=== PATIENT | female | born 1950 | race Caucasian/White ===

== ENCOUNTER 2019-02-10 16:28 | Emergency (ER) | payer MEDICARE ==
--- NOTE | 2019-02-10 16:50 | UC ---
Respiratory Complaint HPI - History of Current Complaint Stated Complaint: COUGH/CONGESTION Time Seen by Provider: 02/10/19 16:42 Hx Obtained From: Patient Onset/Duration: Sudden Onset, Lasting Days - 5 Timing: Constant Severity Initially: Mild Severity Currently: Moderate Character: Cough: Nonproductive Aggravating Factors: Deep Breaths, Recumbent Position Alleviating Factors: Nothing Associated Signs And Symptoms: Positive: Dyspnea - Allergies/Home Medications Allergies/Adverse Reactions: Allergies Allergy/AdvReac Type Severity Reaction Status Date / Time No Known Allergies Allergy Verified 02/10/19 16:51 PMH/Surg Hx/FS Hx/Imm Hx Previously Healthy: Yes - Surgical History Surgical History: Yes Surgery Procedure, Year, and Place: appy, hysterectomy - Family History Known Family History: Positive: Hypertension - Social History Alcohol Use: None Substance Use Type: None Smoking Status (MU): Never Smoked Tobacco Review of Systems All Other Systems Reviewed And Are Negative: Yes Constitutional: Positive: Fatigue ENT: Positive: Sore Throat Respiratory: Positive: Cough Neurological: Positive: Headache Is Patient Immunocompromised?: No Physical Exam Triage Information Reviewed: Yes Appearance: Well-Nourished, Ill-Appearing, Pain Distress Vital Signs Reviewed: Yes Eye Exam: Normal ENT: Positive: Pharyngeal erythema, Nasal congestion, TM bulging Dental Exam: Normal Neck exam: Normal Respiratory: Positive: Chest non-tender, Normal breath sounds, Decreased breath sounds Cardiovascular Exam: Normal Cardiovascular: Positive: RRR, No Murmur, Pulses Normal Abdominal Exam: Normal Musculoskeletal Exam: Normal Neurological Exam: Normal Psychological Exam: Normal Skin Exam: Normal Respiratory Course/Dx - Course Course Of Treatment: hx obtained, exam performed, meds reviewed, chest xray obtained, - Differential Dx/Diagnosis Differential Diagnosis/HQI/PQRI: Bronchitis, Laryngitis, Lower Resp Infection, Sinusitis Provider Diagnosis: Bronchitis Discharge - Sign-Out/Discharge Documenting (check all that apply): Patient Departure All imaging exams completed and their final reports reviewed: Yes - Discharge Plan Condition: Stable Disposition: HOME Patient Education Materials: Acute Bronchitis (ED) Referrals: Jacques Dumont PA [Primary Care Provider] - Additional Instructions: 1. take the medication as prescribed. 2. Rest, and increase fluids 3. follow up if not improving. - Billing Disposition and Condition Condition: STABLE Disposition: Home
[2019-02-10 16:51] VITALS: BP 120/92
[2019-02-10] MEDS ORDERED: Levalbuterol 1.25MG/0.5ML NEB INH ONE (17:14)
[2019-02-10] MEDS ORDERED: Levalbuterol 0.63MG/3ML NEB* UNIT OF USE INH ONE (17:23)
[2019-02-10] MEDS ORDERED: predniSONE TAB* 20 MG PO ONE (17:35)
[2019-02-10] MEDS ORDERED: Albuterol HFA INHALER* 8 gm MDI INH ONE (17:36)
== END 2019-02-10 18:02 | disposition home or self-care (01) ==
LOC: UCCORT 16:28
DX: J40 Bronchitis, not specified as acute or chronic (principal)
CPT/HCPCS: 71046; 99213; A9270-GY; G0463; J7512